=== PATIENT | male | born 1960 | race Native Hawaiian/Other Pacific Islander ===

== ENCOUNTER 2022-03-11 08:34 | Outpatient (CLI) | payer OTHER | END 2022-03-11 20:00 | disposition home or self-care (01) | LOC: CT 08:34 | PROVIDERS: ATTEND Internal Medicine | DX: I27.82 Chronic pulmonary embolism (principal); I26.99 Other pulmonary embolism without acute cor pulmonale | CPT/HCPCS: 36415; 82565; 84520; Q9963 ==